=== PATIENT | male | born 1995 | race Caucasian/White ===

== ENCOUNTER 2023-01-27 13:19 | Outpatient (AMB) | payer OTHER, SELFPAY ==
--- NOTE | 2023-01-27 13:22 | MHC.OFFWIV ---
Intake Vital Signs 01/27/23 13:25 Height 6 ft 1 in Weight 205 lb BMI 27.0 BP 130/60 Blood Pressure Location Lt brachial Position Sitting Pulse 83 Pulse Source Pulse Oximeter Temp 96.4 F L Temp Source Temporal Artery Scan Pulse Oximetry (%) 99 Oxygen Delivery Method Room Air Intake Visit Reasons: [employer] Right Foot/Pain/Limping Intake Note: Pt is here c/o right foot pain. Pt states no falls or injuries. Patient Tobacco Use Status: Never used Tobacco Allergies No Known Allergies Allergy (Verified 01/27/23 13:25) Do you need a note to return to daycare/school/sports/work: No HPI HPI Comments History of Present Illness Details 27-year-old male that presents for right foot pain. Patient was working and [employer] standing all day long for 10 hours then went home to discuss of 2 mi hike to which he developed pain on the right foot. Pain is on the bottom of the foot hurts with ambulation and collateral movement. Denies any known trauma to the foot PFSH Social History Patient Tobacco Use Status: Never used Tobacco Review of Systems Musc Details: right foot pain Physical Exam Vital Signs: Last Vital Signs Temp 96.4 F L 01/27/23 13:25 Pulse 83 01/27/23 13:25 BP 130/60 01/27/23 13:25 Pulse Ox 99 01/27/23 13:25 Oxygen Delivery Method Room Air 01/27/23 13:25 BMI result Body Mass Index 27.0 Const General: cooperative, healthy appearing, no acute distress and alert Orientation/consciousness: patient oriented x3 Limitations: no limitations HEENT Head: Yes normal to inspection Ears: hearing grossly normal bilaterally General nose exam: Normal external nose present Resp Effort & Inspection: normal respiratory effort and able to speak in complete sentences Cardio Rate: regular rate Skin General skin exam: no rashes or lesions noted Neuro General: patient oriented x3 Extrem Other: no tenderness to palpation of the plantar surface pain lateral rotation of the foot General: Yes normal to inspection Assessment & Plan Assessment & Plan (1) Foot pain: Code(s): M79.673 - Pain in unspecified foot Qualifiers: Laterality: right Qualified Code(s): M79.671 - Pain in right foot Plan: of suspicion is plantar fasciitis versus stress fracture. Will provide x-rays there is fracture use evidence of plantar fasciitis right heel spur seen on x-ray. Discussed with patient the still suffering from stress fracture which does not always appear on x-ray. Would recommend symptomatic treatment with rest ice NSAIDs and potentially repeat imaging in a week or so and or referral to podiatry if pain persist. Discharge instructions, follow up and treatment are discussed with patient in my usual fashion. Alternatives in treatment are also discussed. The patient will return for worsening symptoms or as needed. Advised that any labs/imaging ordered will be followed up on and contact made if further treatment needed. Counseled that patient's condition may require further evaluation and/or treatment. Symptoms of concern for worsening disorder discussed in detail in my customary manner. Patient does verbalize understanding of the plan, there are no apparent barriers to communication. The patient is given the opportunity to ask questions and have them answered to his/her satisfaction Orders: Orders XR foot RT 2V Today M79.673 - Pain in unspecified foot Coding Level of Care Code New Pt Level 4 (88936) Diagnoses Right foot pain M79.671 Laterality: right
[2023-01-27 13:25] VITALS: BP 130/60; PULSE 83; TEMP 35.8; O2SAT 99; BMI 27.0
== END 2023-01-27 13:51 | disposition home or self-care (01) ==
PROVIDERS: Visit Provider Physician Assistant
DX: M79.671 Pain in right foot (principal)
CPT/HCPCS: 99204

== ENCOUNTER 2023-01-27 13:32 | Outpatient (REF) | payer OTHER, SELFPAY ==
--- NOTE | ~2023-01-27 | XR_ITS ---
EXAMINATION: XR FOOT, RIGHT CLINICAL INFORMATION: Pain COMPARISON: None available. TECHNIQUE: AP, lateral, and oblique views of the right foot. FINDINGS: Hammertoe deformities. No fracture or dislocation. XR/XR foot RT 2V IMPRESSION: No acute bony pathology.
== END 2023-01-27 13:33 | disposition home or self-care (01) ==
LOC: HO.HMGCX 13:32
PROVIDERS: Visit Provider Physician Assistant
DX: M79.671 Pain in right foot (principal)
CPT/HCPCS: 73620

== ENCOUNTER 2023-02-16 09:20 | Outpatient (AMB) | payer OTHER, SELFPAY ==
[2023-02-16 09:49] VITALS: BP 128/72; PULSE 92; RESP 16; O2SAT 98; BMI 27.7
--- NOTE | 2023-02-16 09:49 | AM.OFFWIN_ITS ---
Intake Vital Signs 02/16/23 09:49 Height 6 ft 1 in Weight 210 lb BMI 27.7 BP 128/72 Blood Pressure Location Lt brachial Position Sitting Respiration 16 Pulse 92 Pulse Source Pulse Oximeter Pulse Oximetry (%) 98 Oxygen Delivery Method Room Air Intake Visit Reasons: EP, right foot pain Intake Note: Patient is here with right foot pain, no known injury, was seen before for same complaint. Patient Tobacco Use Status: Never used Tobacco Allergies No Known Allergies Allergy (Verified 02/16/23 10:30) Medication List - Last Reconciled 02/16/23 by Lobo Bullard MD No Known Home Meds Do you need a note to return to daycare/school/sports/work: Yes HPI EP, right foot pain HPI Details 27-year-old male presents to the office for a sick visit. He continues to have pain in the right foot. Symptoms are more on the bottom of the foot. He is walking with a limp and trying to minimize bearing weight on the medial side of the right foot. [facility] Patient Tobacco Use Status: Never used Tobacco Physical Exam Vital Signs: Last Vital Signs Pulse 92 02/16/23 09:49 Resp 16 02/16/23 09:49 BP 128/72 02/16/23 09:49 Pulse Ox 98 02/16/23 09:49 Oxygen Delivery Method Room Air 02/16/23 09:49 BMI result Body Mass Index 27.7 Extrem Other: Right foot: Discomfort along the arch and the medial side of the foot on the plantar surface. Assessment & Plan Assessment & Plan (1) Plantar fasciitis of right foot: Code(s): M72.2 - Plantar fascial fibromatosis Plan: Work note for 2 weeks provided. Meloxicam prescribed. Patient was advised return in 2 weeks if there is no improvement in symptoms. A podiatry consult will then be requested. Coding Level of Care Code Est Pt Level 3 (55162) Diagnoses Plantar fasciitis of right foot M72.2
== END 2023-02-16 10:34 | disposition home or self-care (01) ==
PROVIDERS: Visit Provider Internal Medicine
DX: M72.2 Plantar fascial fibromatosis (principal)
CPT/HCPCS: 99213